=== PATIENT | female | born 1985 | race African-American/Black ===

== ENCOUNTER 2019-11-02 11:32 | Outpatient (RCR) | payer OTHER, SELFPAY ==
[2019-10-25 09:13] VITALS: BP 110/78; PULSE 109
[2019-11-02 12:35] VITALS: BP 116/81; PULSE 93
== END 2019-12-14 15:44 | disposition home or self-care (01) ==
LOC: ANHOBOP 11:32
PROVIDERS: Visit Provider Obstetrics & Gynecology
DX: O24.419 Gestational diabetes mellitus in pregnancy, unspecified control (principal); Z3A.34 34 weeks gestation of pregnancy; Z3A.35 35 weeks gestation of pregnancy
CPT/HCPCS: 59025